=== PATIENT | female | born 1995 ===

== ENCOUNTER 2023-11-19 11:27 | Outpatient (CLI) | payer OTHER, SELFPAY ==
[2023-11-19 14:22] LABS: Basophils Percent Auto 0.4 % (0.2-1.2); Eosinophils Absolute Auto 0.1 K/mm3 (0-0.3); Eosinophils Percent Auto 0.8 % (0-4.4); Hematocrit 33.8 % (37.0-47.0); Immature Granulocyte Absolute 0.03 K/mm3 (0.00-0.031); Immature Granulocyte Percent A 0.4 % (0-0.5); Lymphocytes Absolute Auto 1.71 K/mm3 (0.9-3.2); Mean Corpuscular HGB Conc 32.5 g/dl (32-36); Mean Corpuscular Volume 89.2 fl (80-100); Mean Platelet Volume 8.9 fl (7.4-10.4); Monocytes Absolute Auto 0.6 K/mm3 (0.1-0.6); Monocytes Percent Auto 8.6 % (2.6-8.5); Neutrophils Percent Auto 66.8 % (45.5-73.1); Platelet Count Result 287 k/mm3 (150-375); Red Blood Count 3.79 M/mm3 (4.2-5.4); Red Cell Distribution Width 12.5 % (11.5-14.5); White Blood Count 7.4 K/mm3 (4.5-10.0)
[2023-11-19 14:28] LABS: Glucose 1 Hour PP 50gm Dose 125 mg/dL
[2023-11-19 15:10] LABS: HIV 1/2 Ab P24 Ag Result Negative (Negative)
[2023-11-19 15:29] LABS: Rapid Plasma Reagin Non-Reactive (NonReactive)
== END 2023-11-19 11:28 | disposition home or self-care (01) ==
LOC: ANHGOSHLAB 11:39
DX: Z36.9 Encounter for antenatal screening, unspecified (principal); Z3A.00 Weeks of gestation of pregnancy not specified
CPT/HCPCS: 36415; 82947; 85025; 86592; 86703; 86850; G0432